=== PATIENT | male | born 1990 | race Caucasian/White ===

== ENCOUNTER 2017-03-20 03:58 | Inpatient (IN) | payer SELFPAY ==
[~2017-03-20] VITALS: Ht 170.2 cm; Wt 116.2 kg
[2017-03-20] MEDS ORDERED: SODIUM CHLORIDE 0.9% 1,000 ML IV ONE (04:21)
[2017-03-20] MEDS ORDERED: NALOXONE HCL 0.4 MG/ML 1ML VIAL IV PRN (04:30)
[2017-03-20 04:52] LABS: HEMATOCRIT. 44.2 % (42.0-52.0); HEMOGLOBIN. 14.7 g/dL (14.0-18.0); MEAN CORPUSCULAR HEMOGLOBIN 28.7 pg (28.0-32.0); MEAN CORPUSCULAR VOLUME 86.5 fL (80.0-94.0); MEAN PLATELET VOLUME 8.7 fl (7.4-10.4); PLATELET 266 x1000/uL (130-400); RED BLOOD CELL COUNT 5.11 mill/uL (4.7-6.1); RED CELL DISTRIBUTION WIDTH 13.6 % (11.6-14.6)
[2017-03-20 05:10] LABS: CARBON DIOXIDE 28 mEq/L (21-32); CHLORIDE 99 mEq/L (98-107); ETHANOL BLOOD < 10 mg/dL
[2017-03-20 05:59] LABS: CLARITY URINE CLEAR (CLEAR); COLOR URINE YELLOW (YELLOW); KETONES URINE NEGATIVE (NEGATIVE); LEUKOCYTE ESTERASE URINE NEGATIVE (NEGATIVE); NITRITE URINE NEGATIVE (NEGATIVE); OCCULT BLOOD URINE NEGATIVE (NEGATIVE); PH URINE 5.5 (4.5-8.0); PROTEIN URINE 1+ (NEGATIVE); SPECIFIC GRAVITY URINE 1.019 (1.005-1.030); UROBILINOGEN URINE 0.2 E.U./dL (0.2-1.0)
[2017-03-20 06:25] LABS: *AMPHETAMINES SCREEN URINE NEGATIVE (NEGATIVE); *BARBITURATES SCREEN URINE NEGATIVE (NEGATIVE); *BENZODIAZEPINES SCREEN URINE PRESUMTIVE POSITIVE (NEGATIVE); *COCAINE SCREEN URINE NEGATIVE (NEGATIVE); CANNABINOID URINE SCREEN PRESUMTIVE POSITIVE (NEGATIVE); METHADONE URINE SCREEN NEGATIVE (NEGATIVE); OPIATES URINE SCREEN PRESUMTIVE POSITIVE (NEGATIVE); PHENCYCLIDINE URINE SCREEN NEGATIVE (NEGATIVE)
[2017-03-20] MEDS ORDERED: CEFTRIAXONE 1 G PREMIX 50 ML IV ONE (06:45)
[2017-03-20] MEDS ORDERED: AZITHROMYCIN 500 MG in DEXT 5% WATER 250 ML IV SCH (06:45)
[2017-03-20 06:57] LABS: PLATELET ESTIMATE NORMAL
[2017-03-20] MEDS ORDERED: HALOPERIDOL LACTATE 5MG/ML VIAL IM PRN (07:45)
[2017-03-20] MEDS ORDERED: DIPHENHYDRAMINE 50MG/ML VIAL IV PRN (07:45)
[2017-03-20] MEDS ORDERED: IPRATROPIUM/ALBUTEROL 0.5-3(2.5)MG/3ML NEB INH PRN (07:45)
[2017-03-20] MEDS ORDERED: NA PHOS,M-B/NA PHOS,DI-BA ENEMA 118ML PR PRN (07:45)
[2017-03-20] MEDS ORDERED: LORAZEPAM 2MG/ML CPJ IV PRN (07:45)
[2017-03-20 10:16] VITALS: BP 116/64
[2017-03-20] MEDS: FAMOTIDINE 20MG/2ML VIAL IV SCH ×2 (10:47→21:12)
[2017-03-20] MEDS: DEXT 5%/LACTATED RINGERS 1,000 ML IV SCH ×2 (10:47→21:01)
[2017-03-20 11:08] VITALS: BP 116/64
[2017-03-20] MEDS: IPRATROPIUM/ALBUTEROL 0.5-3(2.5)MG/3ML NEB HHN SCH ×3 (11:14→20:54)
[2017-03-20 12:00] VITALS: BP 130/45
[2017-03-20] MEDS: ACETAMINOPHEN 650MG SUPP PR PRN (12:21)
[2017-03-20] MEDS: CLINDAMYCIN 900 MG in DEXTROSE 5% WATER 50 ML IV SCH ×2 (15:02→21:13)
[2017-03-20 16:20] VITALS: BP 124/68
[2017-03-20 16:53] LABS: BG BASE EXCESS -0.3 mmol/L (-2.0-2.0); BG CARBOXYHEMOGLOBIN 0.9 % (0.5-1.5); BG DEOXYHEMOGLOBIN 7.8 % (0.0-5.0); BG FRACTION INSPIRED OXYGEN 28; BG HCO3 ACT 25.2 mmol/L (22.0-26.0); BG METHEMOGLOBIN 0.2 % (0.0-1.5); BG OXYGEN SATURATION 92.1 % (92.0-98.5); BG OXYHEMOGLOBIN 91.1 % (94.0-97.0); BG PCO2 44.2 mmHg (35.0-45.0); BG PH 7.374 (7.350-7.450); BG PO2 57.3 mmHg (75.0-100.0); BG SAMPLE SITE RIGHT RADIAL; BG VENT MODE NASAL CANNULA
[2017-03-20] MEDS: KETOROLAC 15MG/ML VIAL IV PRN (18:30)
[2017-03-20] MEDS: ONDANSETRON HCL 4MG/2ML VIAL IV PRN (18:30)
[2017-03-20 20:00] VITALS: BP 109/65
[2017-03-20] MEDS: GUAIFENESIN 600MG ER TABLET PO SCH (21:11)
[2017-03-21] VITALS: BP 128/78
[2017-03-21] MEDS: IPRATROPIUM/ALBUTEROL 0.5-3(2.5)MG/3ML NEB HHN SCH ×3 (00:46→09:49)
[2017-03-21] MEDS: ONDANSETRON HCL 4MG/2ML VIAL IV PRN (00:54)
[2017-03-21] MEDS: ACETAMINOPHEN 650MG SUPP PR PRN (01:02)
[2017-03-21] MEDS: KETOROLAC 15MG/ML VIAL IV PRN ×2 (01:15→10:04)
[2017-03-21 04:02] VITALS: BP 108/60
[2017-03-21] MEDS: CLINDAMYCIN 900 MG in DEXTROSE 5% WATER 50 ML IV SCH (05:48)
[2017-03-21] MEDS: FAMOTIDINE 20MG/2ML VIAL IV SCH (08:33)
[2017-03-21] MEDS: GUAIFENESIN 600MG ER TABLET PO SCH (08:33)
[2017-03-21 10:36] VITALS: BP 107/67
== END 2017-03-21 11:30 | disposition home or self-care (01) | DRG 720 ==
LOC: ER 03:58 → 6WST 06:50 → ENRESERV 09:18
PROVIDERS: ADMIT Internal Medicine; ATTEND Internal Medicine
DX: A41.9 Sepsis, unspecified organism (principal); J69.0 Pneumonitis due to inhalation of food and vomit; G92 Toxic encephalopathy; E83.52 Hypercalcemia; E66.9 Obesity, unspecified; F19.10 Other psychoactive substance abuse, uncomplicated; T40.2X1A Poisoning by other opioids, accidental (unintentional), initial encounter; Y92.89 Other specified places as the place of occurrence of the external cause; Z68.41 Body mass index [BMI] 40.0-44.9, adult; Z88.0 Allergy status to penicillin
CPT/HCPCS: 36415; 36600; 71045; 80053; 80305; 80307; 80329; 81001; 82375; 82805; 83036; 83605; 85025; 87040; 87804; 93005; 94640; 94664; 94667; 96361; 96365; 96375; 99285; G0482; J0456; J0696; J1885; J2310; J2405; J3490; J7030; J7060; J7620

== ENCOUNTER 2017-07-06 21:48 | Emergency (ER) | payer MEDICAID | END 2017-07-07 00:55 | disposition left against medical advice (07) | LOC: ER 21:48 | DX: Z53.21 Procedure and treatment not carried out due to patient leaving prior to being seen by health care provider (principal) ==

== ENCOUNTER 2017-12-14 09:44 | Emergency (ER) | payer MEDICAID ==
[~2017-12-14] VITALS: Ht 175.3 cm; Wt 113.0 kg
[2017-12-14] MEDS ORDERED: ONDANSETRON HCL 4MG/2ML INJ IV STA (10:32)
[2017-12-14] MEDS ORDERED: KETOROLAC 30MG/ML VIAL IV STA (10:32)
[2017-12-14] MEDS ORDERED: SODIUM CHLORIDE 0.9% 1,000 ML IV ONE (10:32)
[2017-12-14] MEDS ORDERED: FAMOTIDINE 20MG/2ML VIAL IV ONE (10:45)
[2017-12-14 11:23] LABS: BASOPHILS % 0.7 % (0.0-2.0); EOSINOPHILS % 0.2 % (0.0-5.0); HEMATOCRIT. 48.9 % (42.0-52.0); HEMOGLOBIN. 16.7 g/dL (14.0-18.0); LYMPHOCYTES % 14.1 % (20.0-50.0); MEAN CORPUSCULAR HEMOGLOBIN 28.8 pg (28.0-32.0); MEAN CORPUSCULAR VOLUME 84.5 fL (80.0-94.0); MEAN PLATELET VOLUME 9.9 fl (7.4-10.4); PLATELET 302 x1000/uL (130-400); RED BLOOD CELL COUNT 5.79 mill/uL (4.7-6.1); RED CELL DISTRIBUTION WIDTH 13.9 % (11.6-14.6)
[2017-12-14 11:32] LABS: CHLORIDE 103 mEq/L (98-107)
[2017-12-14] MEDS ORDERED: POTASSIUM CHLORIDE 20MEQ TABLET SR PO ONE (12:15)
[2017-12-14 12:30] VITALS: BP 126/81
[2017-12-14] MEDS ORDERED: ACETAMINOPHEN 325MG TABLET PO ONE (12:30)
== END 2017-12-14 13:24 | disposition home or self-care (01) ==
LOC: ER 12:38
DX: R11.2 Nausea with vomiting, unspecified (principal); E87.6 Hypokalemia; D72.829 Elevated white blood cell count, unspecified; R51 Headache; R03.0 Elevated blood-pressure reading, without diagnosis of hypertension; F12.10 Cannabis abuse, uncomplicated; R01.1 Cardiac murmur, unspecified; Z88.0 Allergy status to penicillin
CPT/HCPCS: 36415; 80053; 83690; 85025; 96361; 96374; 96375; 99284; J1885; J2405; J3490; J7030